=== PATIENT | female | born 1975 | race African-American/Black ===

== ENCOUNTER 2018-06-14 18:31 | Emergency (ER) | payer OTHER ==
[2018-06-14] MEDS: predniSONE 20 MG TAB PO (19:41)
[2018-06-14] MEDS: HYDROCODONE/APAP (5/325) TAB PO (19:41)
[2018-06-14] MEDS: KETOROLAC 15 MG INJ IM (19:47)
== END 2018-06-14 20:13 | disposition home or self-care (01) ==
LOC: FTE 18:31
DX: M75.92 Shoulder lesion, unspecified, left shoulder (principal)
CPT/HCPCS: 81025; 96372; 99284-25